=== PATIENT | male | born 1965 | race Caucasian/White ===

== ENCOUNTER 2017-08-24 16:45 | Observation (INO) | payer BC ==
[2017-08-24] MEDS ORDERED: TORADOL 15 MG VIAL IVP PRN (17:43)
--- NOTE | 2017-08-24 18:02 | DR.H&P ---
H&P - History & Physical for Day of: H&P Date: 08/24/17 - Chief Complaint Chief Complaint: chest pain, sob - Allergies Allergies/Adverse Reactions: Allergies Allergy/AdvReac Type Severity Reaction Status Date / Time MS No Known Drug Allergy Allergy Verified 10/28/12 14:15 [No Known Drug Allergy] - History of Present Illness History of Present Illness: 52 WM DIRECT ADMIT FROM DR KELLER OFFICE WITH CO CHEST PAIN AND SOB. PT WAS RECENTLY TREATED FOR URI AND PLEURITIC TYPE PAIN. PT STATES HE HAS HAD 2 EPISODES OF CHEST PAIN AND FELT "LIKE COULD NOT GET MY BREATH" PT DENIES ANY HX OF CAD OR HTN. PT HAS TAKEN ROCEPHIN AND STEROID SHOTS PO ATBX THERAPY PRIOR TO ARRIVAL, EKG IN OFFICE - Past Medical History Past Medical History: Arthritis - Past Surgical History Surgical History: Appendectomy - Social History Does patient currently use any type of tobacco product: No Have you used tobacco products in the last 12 months: No Type of Tobacco Use: None Does any household member use tobacco: No Alcohol Use: None Drug Use: None - Review of Systems Constitutional: Malaise Eyes: No Symptoms Reported ENT: No Symptoms Reported Respiratory: Shortness of Breath, Pleuritic Pain Cardiovascular: Chest Pain. denies: Edema Gastrointestinal: No Symptoms Reported Genitourinary: No Symptoms Reported Musculoskeletal: Back Pain (RIGHT UPPER BACK PAIN) Skin: No Symptoms Reported Neurological: No Symptoms Reported - Physical Exam Vital Signs: Blood Pressure 124/79 Oriented: Normal, Person Ear: Normal Nose: Normal Throat: Normal Respiratory: RLL Diminished, LLL Diminished Cardiovascular: Normal : Normal Auscultation: Bowel Sounds: Normal Palpation: Normal Tenderness: Normal Skin: Normal Musculoskeletal: Right, Shoulder (POSTERIOR SHOULDER PAIN) Psychiatric: Anxiety Affect: Anxious Speech Pattern: Clear, Appropriate
[2017-08-24 18:09] LABS: BASOPHILS # (AUTO) 0.1 X10^3/uL (0.0-0.1); EOSINOPHILS # (AUTO) 0.1 x10^3/uL (0.0-0.2); EOSINOPHILS % (AUTO) 1.7 % (0.9-2.9); HEMATOCRIT 41.6 % (42.0-54.0); HEMOGLOBIN 14.5 g/dL (13.5-18.0); LYMPHOCYTES # (AUTO) 2.5 X10^3/uL (1.3-2.9); LYMPHOCYTES % (AUTO) 33.5 % (21.0-51.0); MEAN CORPUSCULAR HGB CONC 34.9 g/dL (33.0-35.0); MEAN CORPUSCULAR VOLUME 88.9 fL (80.0-100.0); MEAN PLATELET VOLUME 7.2 fL (7.4-11.0); MONOCYTES # (AUTO) 0.7 x10^3/uL (0.3-0.8); MONOCYTES % (AUTO) 9.2 % (0.0-13.0); NEUTROPHILS % (AUTO) 54.6 % (42.0-75.0); PLATELET COUNT 231 X10^3/uL (150.0-450.0); RED BLOOD COUNT 4.68 X10^6/uL (4.7-6.0); RED CELL DISTRIBUTION WIDTH 13.2 % (11.6-16.5); WHITE BLOOD COUNT 7.3 X10^3/uL (3.6-10.0)
[2017-08-24 18:23] LABS: ALANINE AMINOTRANSFERASE 148 Units/L (12-78); ALBUMIN 3.6 g/dL (3.4-5.0); ALKALINE PHOSPHATASE 67 Units/L (46-116); ASPARTATE AMINO TRANSFERASE 65 Units/L (15-37); BLOOD UREA NITROGEN 15 mg/dL (7-18); CALCIUM 7.9 mg/dL (8.5-10.1); CARBON DIOXIDE 27.3 mmol/L (21-32); CHLORIDE 103 mmol/L (98-107); CREATININE 1.24 mg/dL (0.70-1.30); MAGNESIUM 2.1 mg/dL (1.7-2.9); SODIUM 138 mmol/L (136-145); TOTAL PROTEIN 6.9 g/dL (6.4-8.2); eGFR BLACK RACES > 60 (>60); eGFR NON BLACK RACES > 60 (>60)
[2017-08-24 18:33] LABS: CKMB % 1.3 % (<4); CREATINE KINASE 76 Units/L (39-308); CREATINE KINASE MB < 1.0 ng/mL (0-4.0); TROPONIN I < 0.02 ng/mL (0-1.5)
--- NOTE | 2017-08-24 18:38 | RAD ---
HISTORY: Chest pain, shortness of breath Study: Chest AP portable Comparison: None Findings: The heart is mildly enlarged. No congestive heart failure is noted. No acute alveolar infiltrates or pleural effusions are identified. The bony thorax is unremarkable. IMPRESSION: Mild cardiomegaly without congestive heart failure Lungs clear Reported By:
[2017-08-24] MEDS: PROTONIX INJ 40 MG VIAL IVP SCH (18:40)
[2017-08-24 18:45] VITALS: BMI 29.5
[2017-08-24 21:01] LABS: BILIRUBIN,URINE NEGATIVE (NEGATIVE); BLOOD/HEMOGLOBIN,URINE NEGATIVE (NEGATIVE); GLUCOSE, URINE NEGATIVE (NEGATIVE); KETONES,URINE NEGATIVE (NEGATIVE); LEUKOCYTE ESTERASE ,URINE NEGATIVE (NEGATIVE); NITRITES,URINE NEGATIVE (NEGATIVE); PROTEIN,URINE NEGATIVE (NEGATIVE); UROBILINOGEN,URINE NORMAL (NORMAL)
[2017-08-24] MEDS: SOLU-Medrol 125 MG VIAL IVP SCH (21:03)
[2017-08-24 21:27] LABS: AMORPHOUS SEDIMENT,UR 1+ /HPF (NEGATIVE); APPEARANCE,URINE SLIGHTLY HAZY (CLEAR); BACTERIA,URINE NEGATIVE /HPF (NEGATIVE); COLOR,URINE YELLOW (YELLOW); RBC,URINE 0-3 /HPF (NEGATIVE); SQUAMOUS EPITHELIAL CELL,UR FEW /HPF (NEGATIVE)
[2017-08-25 00:32] LABS: CKMB % 1.4 % (<4); CREATINE KINASE 73 Units/L (39-308); CREATINE KINASE MB < 1.0 ng/mL (0-4.0); TROPONIN I < 0.02 ng/mL (0-1.5)
[2017-08-25 05:24] LABS: BASOPHILS % (AUTO) 0.2 % (0.2-1.0); EOSINOPHILS % (AUTO) 0.1 % (0.9-2.9); HEMATOCRIT 45.3 % (42.0-54.0); HEMOGLOBIN 16.1 g/dL (13.5-18.0); LYMPHOCYTES # (AUTO) 1.1 X10^3/uL (1.3-2.9); LYMPHOCYTES % (AUTO) 12.6 % (21.0-51.0); MEAN CORPUSCULAR HEMOGLOBIN 31.3 pg (27.0-34.0); MEAN CORPUSCULAR HGB CONC 35.4 g/dL (33.0-35.0); MEAN CORPUSCULAR VOLUME 88.3 fL (80.0-100.0); MEAN PLATELET VOLUME 7.2 fL (7.4-11.0); MONOCYTES # (AUTO) 0.1 x10^3/uL (0.3-0.8); MONOCYTES % (AUTO) 1.2 % (0.0-13.0); NEUTROPHILS # (AUTO) 7.2 x10^3/uL (2.2-4.8); NEUTROPHILS % (AUTO) 85.9 % (42.0-75.0); PLATELET COUNT 240 X10^3/uL (150.0-450.0); RED BLOOD COUNT 5.13 X10^6/uL (4.7-6.0); WHITE BLOOD COUNT 8.4 X10^3/uL (3.6-10.0)
[2017-08-25] MEDS: SOLU-Medrol 125 MG VIAL IVP SCH ×2 (05:28→15:43)
[2017-08-25 05:55] LABS: CHOL/HDL RATIO 4.4 (0.0-5.0)
[2017-08-25 06:03] LABS: ALANINE AMINOTRANSFERASE 151 Units/L (12-78); ALBUMIN 3.9 g/dL (3.4-5.0); ALKALINE PHOSPHATASE 73 Units/L (46-116); BLOOD UREA NITROGEN 17 mg/dL (7-18); CALCIUM 8.9 mg/dL (8.5-10.1); CHLORIDE 102 mmol/L (98-107); CKMB % 1.5 % (<4); COR NA(FOR HYPERGLY) 138 mmol/L (136-145); CREATINE KINASE 66 Units/L (39-308); CREATINE KINASE MB < 1.0 ng/mL (0-4.0); CREATININE 1.26 mg/dL (0.70-1.30); SODIUM 137 mmol/L (136-145); TOTAL PROTEIN 7.8 g/dL (6.4-8.2); TROPONIN I < 0.02 ng/mL (0-1.5); eGFR BLACK RACES > 60 (>60); eGFR NON BLACK RACES > 60 (>60)
[2017-08-25 07:28] LABS: ASPARTATE AMINO TRANSFERASE 65 Units/L (15-37)
[2017-08-25] MEDS: PROTONIX INJ 40 MG VIAL IVP SCH (09:01)
[2017-08-25] MEDS ORDERED: FLEXERIL TAB 10 MG PO PRN (13:39)
[2017-08-25] MEDS ORDERED: NS 500 ML IV 500 ML IV ONE (15:22)
[2017-08-25] MEDS: ZITHROMAX INJ 500 MG VIAL 500 MG in NS 250 ML IV 250 ML IV SCH (15:43)
[2017-08-25] MEDS: CORTISPORIN OPHTH SUSP EACHEYE SCH ×2 (15:43→20:54)
[2017-08-25] MEDS: TORADOL 30 MG VIAL IVP SCH ×2 (15:44→20:00)
[2017-08-26] MEDS: CORTISPORIN OPHTH SUSP EACHEYE SCH ×2 (02:00→08:16)
[2017-08-26] MEDS: ZITHROMAX INJ 500 MG VIAL 500 MG in NS 250 ML IV 250 ML IV SCH (08:15)
[2017-08-26] MEDS: PROTONIX INJ 40 MG VIAL IVP SCH (08:16)
[2017-08-26 10:18] VITALS: BP 123/76
== END 2017-08-26 14:00 | disposition home or self-care (01) ==
LOC: MED/SURG 16:45
PROVIDERS: ADMIT Obstetrics & Gynecology Reproductive Endocrinology; ATTEND Internal Medicine
DX: R09.1 Pleurisy (principal); J20.8 Acute bronchitis due to other specified organisms; R06.02 Shortness of breath; R94.31 Abnormal electrocardiogram [ECG] [EKG]; E78.2 Mixed hyperlipidemia; R74.8 Abnormal levels of other serum enzymes
CPT/HCPCS: 36415; 71045; 80053; 80061; 81001; 82550; 82553; 83735; 84484; 85025; 85610; 85730; 93005; 93010; 94760; A4216; A4222; C9113; G0378; J0456; J1885; J2930